=== PATIENT | female | born 1965 | race Caucasian/White ===

== ENCOUNTER 2016-07-31 20:01 | Emergency (ER) | payer MEDICARE, MEDICAID | END 2016-07-31 20:20 | disposition left against medical advice (07) | LOC: UCEAST 20:01 | DX: Z53.21 Procedure and treatment not carried out due to patient leaving prior to being seen by health care provider (principal); K08.89 Other specified disorders of teeth and supporting structures ==

== ENCOUNTER 2016-08-01 10:16 | Emergency (ER) | payer MEDICARE, MEDICAID ==
[2016-08-01 10:56] VITALS: BP 108/81
--- NOTE | 2016-08-01 11:29 | UC ---
UC Dental HPI - HPI Summary HPI Summary: L upper tooth pain for several weeks. Took course of amoxicillin rx by dentist without relief, then changed to clindamycin and had temporary relief, now most recent rx for amoxicillin is again not working. Has apt with dentist on . Last night had awful pain with gum swelling. Took 800mg ibuprofen this morning. - History of Current Complaint Chief Complaint: UCDentalProblem Stated Complaint: DENTAL COMPLAINT Time Seen by Provider: 08/01/16 11:08 Hx Obtained From: Patient Hx Last Menstrual Period: 10/30 GETS Q 2-3 MOS AT THIS TIME Onset/Duration: Gradual Onset, Lasting Weeks Severity: Moderate Aggravating: Chewing - Allergies/Home Medications Allergies/Adverse Reactions: Allergies Allergy/AdvReac Type Severity Reaction Status Date / Time Sulfa Drugs AdvReac Intermediate Joint Pain Verified 07/12/16 18:57 PMH/Surg Hx/FS Hx/Imm Hx Endocrine History Of: Reports: Thyroid Disease - hypothyroidism, synthroid Denies: Diabetes Cardiovascular History Of: Denies: Cardiac Disorders, Hypertension Respiratory History Of: Reports: COPD - 2L o2 x 24 hr, Asthma GI/ History Of: Denies: Ulcer Neurological History Of: Reports: Migraine - ONE PER MONTH Psychological History Of: Reports: Anxiety - NO MEDS, Depression - NO MEDS - Surgical History Surgical History: Yes Surgery Procedure, Year, and Place: appy 1985. C SECTIONS X2. TUBAL LIGATION - Family History Known Family History: Negative: Cardiac Disease Family History: no cardiovascular issues reported in family lineage - Social History Lives: Alone Alcohol Use: None Substance Use Type: None Substance Use Comment - Amount & Last Used: thc Smoking Status (MU): Former Smoker Type: Cigarettes Have You Smoked in the Last Year: No Review of Systems Constitutional: Negative Skin: Negative Eyes: Negative ENT: Dental Pain Respiratory: Negative Cardiovascular: Negative Gastrointestinal: Negative Genitourinary: Negative Motor: Negative Neurovascular: Negative Musculoskeletal: Negative Neurological: Negative Psychological: Negative All Other Systems Reviewed And Are Negative: Yes Physical Exam Triage Information Reviewed: Yes Appearance: Well-Appearing, No Pain Distress, Obese Vital Signs: Initial Vital Signs Temp 97.5 F 08/01/16 10:49 Pulse 89 08/01/16 10:49 Resp 18 08/01/16 10:49 BP 108/81 08/01/16 10:49 Pulse Ox 99 08/01/16 10:49 Vital Signs Reviewed: Yes Eye Exam: Normal Eyes: Positive: Conjunctiva Clear ENT Exam: Normal ENT: Positive: Normal ENT inspection, Hearing grossly normal, Pharynx normal, TMs normal Dental Exam: Other - partial plate Dental: Positive: Percussion Tenderness @ - #10. Negative: Dental Fracture @, Abscess @ Respiratory Exam: Normal Respiratory: Positive: Chest non-tender, Lungs clear, Normal breath sounds, No respiratory distress, No accessory muscle use Cardiovascular Exam: Normal Cardiovascular: Positive: RRR, No Murmur Musculoskeletal Exam: Normal Neurological Exam: Normal Psychological Exam: Normal Skin Exam: Normal Dental Complaint Course/Dx - Differential Dx/Diagnosis Provider Diagnoses: Toothache #10 Discharge - Discharge Plan Condition: Stable Disposition: HOME Prescriptions: Acetaminop/Codeine 30 MG TAB* [Tylenol/Codeine 30 MG TAB*] 1 - 2 tab PO Q6H PRN #10 tab MDD 8 PRN Reason: dental pain Clindamycin Cap(NF) [Cleocin 300 mg Cap(NF)] 300 mg PO Q6H #15 cap Indomethacin CAP* [Indocin CAP*] 50 mg PO TID PRN #30 cap PRN Reason: Pain Patient Education Materials: Toothache (ED) Referrals: Vinny Montanez DO [Primary Care Provider] - Additional Instructions: Please follow up with your dentist on Tuesday as scheduled.
== END 2016-08-01 11:10 | disposition home or self-care (01) ==
LOC: UCEAST 10:16
DX: K08.89 Other specified disorders of teeth and supporting structures (principal); Z87.891 Personal history of nicotine dependence
CPT/HCPCS: 99212; G0463

== ENCOUNTER 2016-08-10 19:45 | Emergency (ER) | payer MEDICARE, MEDICAID ==
[2016-08-10 20:04] VITALS: BP 183/77
--- NOTE | 2016-08-11 00:03 | ED ---
IMio,Masoud, scribed for Zeb Zamarripa MD on 08/10/16 at 2212 . Throat Pain/Nasal Congestion - HPI Summary HPI Summary: This 51 y/o female presents to ED for post-op dental pain after abscess drainage yesterday. [facility] OPERATOR indicates that pt has been prescribed 70 tabs of narcotic in last 24 hours. Pt states that her post-op pain has gradually worsened since the time of onset, and her prescribes hydrocodone is not helping with her pain. Per triage nurse, pt has been throwing ice pack and expletives in waiting room. - History of Current Complaint Chief Complaint: EDDentalPain Time Seen by Provider: 08/10/16 21:41 Hx Obtained From: Patient, Medical Records Onset/Duration: Gradual Onset Associated Signs And Symptoms: Positive: Negative Cough: None - Allergies/Home Medications Allergies/Adverse Reactions: Allergies Allergy/AdvReac Type Severity Reaction Status Date / Time Sulfa Drugs AdvReac Intermediate Joint Pain Verified 07/12/16 18:57 PMH/Surg Hx/FS Hx/Imm Hx Endocrine/Hematology History: Reports: Hx Thyroid Disease - hypothyroidism, synthroid Denies: Hx Bone Marrow Disease, Hx Diabetes, Hx Sickle Cell Disease, Hx Anemia Cardiovascular History: Denies: Hx Hypertension, Other Cardiovascular Problems/Disorders Respiratory History: Reports: Hx Asthma, Hx Chronic Obstructive Pulmonary Disease (COPD) - 2L o2 x 24 hr, Hx Sleep Apnea - current CPAP user, Other Respiratory Problems/Disorders - ex-smoker GI History: Reports: Hx Gastroesophageal Reflux Disease Denies: Hx Ulcer Musculoskeletal History: Denies: Other Musculoskeletal History Sensory History: Reports: Hx Contacts or Glasses Denies: Hx Hearing Aid Opthamlomology History: Reports: Hx Contacts or Glasses Neurological History: Reports: Hx Migraine - ONE PER MONTH Denies: Other Neuro Impairments/Disorders Psychiatric History: Reports: Hx Anxiety - NO MEDS, Hx Depression - NO MEDS, Other Psychiatric Issues/Disorders - previous hx recreatinal drug use - Surgical History Surgery Procedure, Year, and Place: appy 1985. C SECTIONS X2. TUBAL LIGATION Hx Anesthesia Reactions: Yes - NAUSEA AND VOMITING Infectious Disease History: No Infectious Disease History: Denies: Hx Hepatitis, Hx Human Immunodeficiency Virus (HIV), Traveled Outside the [place] in Last 30 Days - Family History Known Family History: Negative: Cardiac Disease Family History: no cardiovascular issues reported in family lineage - Social History Alcohol Use: None Hx Substance Use: No Substance Use Type: Reports: None Substance Use Comment - Amount & Last Used: thc Hx Tobacco Use: Yes Smoking Status (MU): Former Smoker Type: Cigarettes Have You Smoked in the Last Year: No Review of Systems Negative: Fever Negative: Erythema Positive: Dental Pain Negative: Chest Pain Negative: Shortness Of Breath, Cough Negative: Abdominal Pain, Nausea Negative: dysuria Negative: Myalgia, Edema Neurological: Other - positive for dizziness Negative: Weakness Negative: Anxious, Depressed All Other Systems Reviewed And Are Negative: Yes Physical Exam Vital Signs On Initial Exam: Initial Vitals Temp Pulse Resp BP Pulse Ox 97.8 F 98 22 183/77 100 08/10/16 20:00 08/10/16 20:00 08/10/16 20:00 08/10/16 20:00 08/10/16 20:00 Diagnostics - Vital Signs Vital Signs Temp Pulse Resp BP Pulse Ox 08/10/16 20:00 97.8 F 98 22 183/77 100 - Laboratory Lab Statement: Any lab studies that have been ordered have been reviewed, and results considered in the medical decision making process. EENT Course/Dx - Course Assessment/Plan: This 51 y/o female presents to ED for acute dental pain after her abscess drainage at left upper jaw. Pt is noted to be throwing her icepack as well as expletives in waiting room. Security guards are notified and present outside the room. No actively draining abscess was visible upon examination. EMR indicates that she has had 3 urgent care and ED visits for similar dental complaints. Pt is recommended to use warm tea bag, oral gel, anbasol to control her dental pain. Pt admits to taking APAP with codeine 1q6h. Pt is not noted with any SI/HI is noted, and it is not concerned that pt will be OD with APAP with codeine. Pt denies that her dentist has prescribed her abx, so abx was rx to her pharmacy. She confirms that her pharmacy is [address] . Pt became upset during the initial evaluation, and ambulated out the exam room. Discharge paper was delivered to her. - Diagnoses Provider Diagnoses: Drug-seeking behavior, Pain, dental, Postoperative pain Discharge - Discharge Plan Condition: Stable Disposition: HOME Prescriptions: Clindamycin Cap(NF) [Cleocin 300 mg Cap(NF)] 300 mg PO Q6H #28 cap Patient Education Materials: Narcotic Abuse (ED), Toothache (ED) Referrals: Miky Keller MD [Medical Doctor] - 2 Days Vinny Montanez DO [Primary Care Provider] - 2 Days Additional Instructions: Return to the emergency department for changing or worsening symptoms The documentation as recorded by the Mio warner Soohyun accurately reflects the service I personally performed and the decisions made by Marilou gilliam Jerry, MD.
== END 2016-08-10 22:04 | disposition home or self-care (01) ==
LOC: ED 19:45
DX: K08.89 Other specified disorders of teeth and supporting structures (principal); G89.18 Other acute postprocedural pain; Z72.89 Other problems related to lifestyle
CPT/HCPCS: 99283

== ENCOUNTER 2017-08-13 15:27 | Emergency (ER) | payer MEDICARE, MEDICAID ==
[2017-08-13 18:31] VITALS: BP 120/71
[2017-08-13] MEDS ORDERED: Azithromycin TAB* 250 MG PO ONE (18:51)
[2017-08-13] MEDS ORDERED: predniSONE TAB* 20 MG PO ONE (18:51)
--- NOTE | 2017-08-13 18:52 | UC ---
Respiratory Complaint HPI - HPI Summary HPI Summary: 52 yo female with COPD presents with 2 week hx of cough using neb more frequently no fever/chills - History of Current Complaint Chief Complaint: UCGeneralIllness Stated Complaint: CONGESTION Time Seen by Provider: 08/13/17 18:45 Hx Obtained From: Patient Hx Last Menstrual Period: 10/30 GETS Q 2-3 MOS AT THIS TIME Onset/Duration: Gradual Onset, Lasting Weeks - 2 Timing: Constant Severity Initially: Moderate Severity Currently: Moderate Pain Intensity: 0 Pain Scale Used: 0-10 Numeric Character: Cough: Productive Aggravating Factors: Nothing Alleviating Factors: Bronchodilator Associated Signs And Symptoms: Positive: Wheezing - Allergies/Home Medications Allergies/Adverse Reactions: Allergies Allergy/AdvReac Type Severity Reaction Status Date / Time Sulfa Drugs AdvReac Intermediate Joint Pain Verified 08/13/17 18:30 Home Medications: Home Medications Acetaminop/Codeine 30 MG TAB* [Tylenol/Codeine 30 MG TAB*] 1 tab PO Q6H PRN MDD 8 08/13/17 [History Confirmed 08/13/17] DULoxetine DR CAP* [Cymbalta CAP*] 60 mg PO BID 08/13/17 [History Confirmed ] Epinephrine [Epipen 2-Calos] 0.3 mg IM PRN 08/13/17 [History] Nortriptyline HCl 50 mg PO BEDTIME 08/13/17 [History Confirmed 08/13/17] Omalizumab (NF) [Xolair (NF)] 150 mg SUBCUT MONTHLY 08/13/17 [History Confirmed 08/13/17] PMH/Surg Hx/FS Hx/Imm Hx Previously Healthy: Yes Respiratory History: COPD, Bronchitis - Surgical History Surgical History: Yes Surgery Procedure, Year, and Place: appy 1985. C SECTIONS X2. TUBAL LIGATION - Family History Known Family History: Negative: Cardiac Disease Family History: no cardiovascular issues reported in family lineage - Social History Alcohol Use: None Substance Use Type: None Substance Use Comment - Amount & Last Used: thc Smoking Status (MU): Former Smoker Type: Cigarettes Have You Smoked in the Last Year: No Review of Systems Constitutional: Negative Skin: Negative Eyes: Negative ENT: Negative Respiratory: Cough Cardiovascular: Negative Gastrointestinal: Negative Genitourinary: Negative Motor: Negative Neurovascular: Negative Musculoskeletal: Negative Neurological: Negative Psychological: Negative Is Patient Immunocompromised?: No All Other Systems Reviewed And Are Negative: Yes Physical Exam Triage Information Reviewed: Yes Appearance: Well-Appearing, No Pain Distress, Well-Nourished Vital Signs: Initial Vital Signs Temp 97.5 F 08/13/17 18:21 Pulse 93 08/13/17 18:21 Resp 16 08/13/17 18:21 BP 120/71 08/13/17 18:21 Pulse Ox 100 08/13/17 18:21 Vital Signs Reviewed: Yes Eyes: Positive: Conjunctiva Clear ENT: Positive: Hearing grossly normal, TMs normal, Uvula midline. Negative: Nasal congestion, Nasal drainage, Tonsillar swelling, Tonsillar exudate, Trismus , Muffled voice, Hoarse voice, Sinus tenderness Neck: Positive: Supple, Nontender Respiratory: Positive: Normal breath sounds, No respiratory distress, No accessory muscle use, Wheezing - with forced expiration Cardiovascular: Positive: RRR, No Murmur Musculoskeletal: Positive: ROM Intact, No Edema Neurological: Positive: Alert Psychological Exam: Normal Skin Exam: Normal UC Diagnostic Evaluation - Laboratory O2 Sat by Pulse Oximetry: 100 - normal/not hypoxic Respiratory Course/Dx - Differential Dx/Diagnosis Provider Diagnoses: acute exacerbation of COPD Discharge - Discharge Plan Condition: Stable Disposition: HOME Prescriptions: Azithromycin TAB* [Zithromax TAB*] 250 mg PO DAILY #4 tab Prednisone [Deltasone] 40 mg PO DAILY #8 tab Patient Education Materials: Acute Bronchitis (ED) Referrals: Vinny Montanez DO [Primary Care Provider] - 4 Days
== END 2017-08-13 19:03 | disposition home or self-care (01) ==
LOC: UCCORT 15:27
DX: J44.1 Chronic obstructive pulmonary disease with (acute) exacerbation (principal); Z87.891 Personal history of nicotine dependence; Z88.2 Allergy status to sulfonamides
CPT/HCPCS: 99212; A9270-GY; G0463; J7512

== ENCOUNTER 2021-11-19 05:47 | Inpatient (IN) ==
[2021-11-19] MEDS ORDERED: Dexamethasone IV 4 MG/ML VIAL 1 ml VIAL IV SLOW PU ONE (06:00)
[2021-11-19] MEDS ORDERED: DiMENhydriNATE IV 50 mg/ml 1 ml VIAL IV PUSH ONE (06:00)
[2021-11-19] MEDS ORDERED: Lactated Ringers 1000 ml BAG 1,000 ML IV SCH (06:00)
[2021-11-19] MEDS ORDERED: Famotidine IV 10 MG/ML 2 ml VIAL (20 mg) IV ONE (06:00)
[2021-11-19] MEDS ORDERED: Buffered Lidocaine 1% SYRIN 1 ml INTRADERM ONE (06:00)
[2021-11-19] MEDS ORDERED: Levalbuterol 0.63MG/3ML NEB UNIT OF USE INH ONE ×2 (06:00→06:09)
[2021-11-19] MEDS ORDERED: DiMENhydriNATE IV 50 mg/ml 1 ml VIAL ONE (06:10)
[2021-11-19] MEDS ORDERED: ceFAZolin 2 GM PREMIX 2 GM/50 ML BAG ONE (06:10)
[2021-11-19] MEDS ORDERED: Dexamethasone IV 4 MG/ML VIAL 1 ml VIAL ONE (06:10)
[2021-11-19] MEDS ORDERED: Famotidine IV 10 MG/ML 2 ml VIAL (20 mg) ONE (06:10)
[2021-11-19] MEDS ORDERED: ROPIVACAINE 5 MG/ML 30 ML BTL (0.5%) ONE ×2 (06:58→07:12)
[2021-11-19] MEDS ORDERED: Midazolam 5 mg/5 ml VIAL 1 mg/ml 5 ml VIAL (5 mg) ONE (07:10)
[2021-11-19] MEDS ORDERED: fentaNYL 100 mcg/2 ml 50 MCG/ML VIAL ONE (07:10)
[2021-11-19] MEDS ORDERED: Ondansetron ODT 4 mg TAB 4 MG TAB PO PRN (07:35)
[2021-11-19] MEDS ORDERED: diPHENhydraMINE 25 mg TAB PO PRN (07:35)
[2021-11-19] MEDS ORDERED: diPHENhydraMINE IV 50 MG/ML 1 ml VIAL (BENADRYL) IV PRN (07:35)
[2021-11-19] MEDS ORDERED: Lactulose 30 ml UDC PO PRN (07:35)
[2021-11-19] MEDS ORDERED: Morphine 2 MG/ML SYRINGE IV PRN (07:35)
[2021-11-19] MEDS ORDERED: Magnesium Hydroxide LIQ 30 ML UDC PO PRN (07:35)
[2021-11-19] MEDS ORDERED: Ondansetron 4 mg VIAL 2 MG/ML 2 ml VIAL IV PRN (07:35)
[2021-11-19] MEDS ORDERED: Albuterol HFA INHALER 8 gm MDI INH PRN (07:46)
[2021-11-19] MEDS ORDERED: ceFAZolin 1 GM ADVAN 1 GM in NS 0.9% 50 ML 50 ML IVPB SCH (08:00)
[2021-11-19] MEDS ORDERED: Naloxone 0.4 mg VIAL 0.4 mg/ml 1 ml VIAL IV PRN (08:38)
[2021-11-19] MEDS ORDERED: Prochlorperazine 5 mg/ml 2 ml VIAL (10 mg) IV PRN (08:38)
[2021-11-19] MEDS ORDERED: Morphine 4 MG/ML VIAL (1 ml) IV PRN (08:38)
[2021-11-19] MEDS ORDERED: fentaNYL 100 mcg/2 ml 50 MCG/ML VIAL IV PRN (08:38)
[2021-11-19] MEDS: Magnesium Hydroxide LIQ 30 ML UDC PO SCH ×2 (11:51→20:45)
[2021-11-19] MEDS: Vitamin THERAPEUTIC TAB PO SCH (11:51)
[2021-11-19] MEDS: DULoxetine DR 60 mg CAP PO SCH ×2 (12:00→20:43)
[2021-11-19] MEDS: CMCS: FLUTICAS/UMECLI/VILANT 200-62.5-25 MDI (NF) INH SCH (12:01)
[2021-11-19] MEDS: Lactated Ringers 1000 ml BAG 1,000 ML IV SCH ×2 (12:03→22:51)
[2021-11-19] MEDS: ceFAZolin VIAL 1 GM in NS 0.9% 50 ML 50 ML IVPB SCH (16:12)
[2021-11-20] MEDS: ceFAZolin VIAL 1 GM in NS 0.9% 50 ML 50 ML IVPB SCH ×2 (00:07→07:49)
[2021-11-20 06:39] LABS: Hematocrit 31 % (35-47); Hemoglobin 10.4 g/dL (12.0-16.0); Mean Platelet Volume 6.5 fL (7.4-10.4); Platelet Count 196 10^3/uL (150-450)
[2021-11-20 07:00] LABS: Calcium 8.6 mg/dL (8.6-10.3); Potassium 4.7 mmol/L (3.5-5.0); eGFR CKD-EPI 99.7 (>60)
[2021-11-20] MEDS: Magnesium Hydroxide LIQ 30 ML UDC PO SCH ×2 (07:51→22:04)
[2021-11-20] MEDS: DULoxetine DR 60 mg CAP PO SCH ×2 (07:52→22:04)
[2021-11-20] MEDS: Vitamin THERAPEUTIC TAB PO SCH (07:53)
[2021-11-20] MEDS: CMCS: FLUTICAS/UMECLI/VILANT 200-62.5-25 MDI (NF) INH SCH (08:07)
[2021-11-20] MEDS ORDERED: Iohexol 350 (CONTRAST) 500 ML MDV IV ONE (12:03)
[2021-11-21] MEDS: DULoxetine DR 60 mg CAP PO SCH (07:59)
[2021-11-21] MEDS: Vitamin THERAPEUTIC TAB PO SCH (08:00)
[2021-11-21] MEDS: Magnesium Hydroxide LIQ 30 ML UDC PO SCH (08:01)
[2021-11-21 08:02] LABS: Hematocrit 28 % (35-47); Hemoglobin 9.3 g/dL (12.0-16.0); Mean Platelet Volume 6.4 fL (7.4-10.4); Platelet Count 164 10^3/uL (150-450)
[2021-11-21 11:44] VITALS: BP 119/57
== END 2021-11-21 14:10 | disposition home or self-care (01) | DRG 302 ==
LOC: AA 05:47
PROVIDERS: ADMIT Orthopaedic Surgery Adult Reconstructive Orthopaedic Surgery; ATTEND Orthopaedic Surgery Adult Reconstructive Orthopaedic Surgery

== ENCOUNTER 2024-01-31 17:28 | Observation (INO) ==
[2024-01-31] MEDS ORDERED: Magnesium Sulfate 2 gm BAG 2 GM/50 ML BAG IVPB ONE (17:49)
[2024-01-31 18:16] LABS: ABS Basophils 0.1 10^3/uL (0.0-0.1); ABS Eosinophils 0.3 10^3/uL (0.0-0.5); ABS Lymphocytes 1.9 10^3/uL (1.0-4.8); ABS Monocytes 0.5 10^3/uL (0.0-0.9); ABS Neutrophils 3.8 10^3/uL (1.5-7.6); Eosinophil % 5.2 %; Hematocrit 39.2 % (35-45); Lymphocyte % 28.6 %; Mean Corpuscular Hemoglobin 28.6 pg (27-33); Mean Corpuscular Hgb Conc 33.1 g/dL (31-36); Mean Corpuscular Volume 86.5 fL (80-97); Mean Platelet Volume 7.3 fL (7.5-11.2); Platelet Count 229 10^3/uL (150-450); Red Blood Count 4.53 10^6/uL (3.63-4.92); Red Cell Distribution Width 16.1 % (12-17); White Blood Count 6.5 10^3/uL (3.8-11.8)
[2024-01-31] MEDS: Lactated Ringers 1000 ml BAG 1,000 ML IV ONE (18:16)
[2024-01-31] MEDS: Magnesium Sulfate 2 gm BAG 2 GM/50 ML BAG IVPB ONE (18:28)
[2024-01-31 18:33] LABS: INR 1.17 (0.83-1.13)
[2024-01-31 19:20] LABS: Albumin 3.9 g/dL (3.2-5.2); Albumin/Globulin Ratio 1.6 (1-3); Calcium 8.9 mg/dL (8.6-10.3); Creatinine, Serum 0.82 mg/dL (0.51-0.95); Globulin 2.4 g/dL (2-4); Potassium 3.6 mmol/L (3.5-5.0); Total Bilirubin 0.4 mg/dL (0.2-1.0); Total Protein 6.3 g/dL (6.4-8.9); eGFR CKD-EPI 82.9 (>60)
[2024-01-31] MEDS: dilTIAZem 30 MG TAB PO ONE (19:30)
[2024-01-31 19:48] LABS: High Sensitivity Troponin 1 Hr 9 pg/mL (<15)
[2024-02-01 01:43] LABS: Magnesium 1.9 mg/dL (1.9-2.7)
[2024-02-01] MEDS: KCL 20 MEQ/100 ML IVPREMIX 20 MEQ/100 ML BAG IV ONE (02:11)
[2024-02-01] MEDS ORDERED: Albuterol HFA INHALER 8 gm MDI INH PRN (02:30)
[2024-02-01] MEDS ORDERED: Albuterol 2.5mg/3 ml (0.083%) NEB.SOLN INH PRN (02:30)
[2024-02-01 05:47] LABS: ABS Basophils 0.1 10^3/uL (0.0-0.1); ABS Eosinophils 0.4 10^3/uL (0.0-0.5); ABS Lymphocytes 1.8 10^3/uL (1.0-4.8); ABS Monocytes 0.6 10^3/uL (0.0-0.9); ABS Neutrophils 4.8 10^3/uL (1.5-7.6); ABS Nucleated RBC 0.01 10^3/ul; Eosinophil % 5.1 %; Hematocrit 38.3 % (35-45); Hemoglobin 12.5 g/dL (11.5-14.3); Mean Corpuscular Hemoglobin 28.2 pg (27-33); Mean Corpuscular Hgb Conc 32.7 g/dL (31-36); Mean Corpuscular Volume 86.4 fL (80-97); Mean Platelet Volume 7.3 fL (7.5-11.2); Nucleated Red Blood Cells % 0.1 %/100WBC (0.0-0.8); Platelet Count 225 10^3/uL (150-450); Red Blood Count 4.43 10^6/uL (3.63-4.92); Red Cell Distribution Width 16.3 % (12-17); White Blood Count 7.6 10^3/uL (3.8-11.8)
[2024-02-01 06:45] LABS: Creatinine, Serum 0.67 mg/dL (0.51-0.95); Magnesium 2.1 mg/dL (1.9-2.7); Potassium 3.9 mmol/L (3.5-5.0); eGFR CKD-EPI 101.2 (>60)
[2024-02-01 07:00] LABS: TSH Ultra Thyroid Stim Horm 4.52 mcIU/mL (0.34-5.60)
[2024-02-01] MEDS: DULoxetine DR 60 mg CAP PO SCH (07:41)
[2024-02-01] MEDS ORDERED: Acetaminop/Codeine 300mg/30mg TAB PO PRN (07:56)
[2024-02-01] MEDS: CMCS: FLUTICAS/UMECLI/VILANT 200-62.5-25 MDI (NF) INH SCH (11:27)
[2024-02-01] MEDS: Digoxin IV 0.5 MG/2 ML AMP (0.25 MG/ML) IV SLOW PU ONE (11:31)
[2024-02-01] MEDS: Metoprolol Tartrate 5 mg VIAL 5 ml VIAL (1 mg/ml) IV ONE ×2 (11:47→16:17)
[2024-02-01] MEDS: Metoprolol Tartrate 5 mg VIAL 5 ml VIAL (1 mg/ml) IV PRN (12:13)
[2024-02-01] MEDS ORDERED: Glycopyrrolate IV 0.2 MG/ML 1 ML VIAL ONE (14:44)
[2024-02-01] MEDS ORDERED: Propofol 10 MG/ML 20 ML BTL ONE (14:44)
[2024-02-01] MEDS ORDERED: Midazolam 2 mg/2 ml VIAL 1 mg/ml 2 ml VIAL (2 mg) ONE (14:44)
[2024-02-01] MEDS ORDERED: fentaNYL 100 mcg/2 ml 50 MCG/ML VIAL ONE (14:44)
[2024-02-01] MEDS: Sulfur Hexaflouride MICROSPHR 25 MG VIAL IV ONE (15:48)
[2024-02-01] MEDS ORDERED: Metoprolol Tartrate 5 mg VIAL 5 ml VIAL (1 mg/ml) ONE (16:00)
[2024-02-01 21:08] LABS: T4, Total 9.32 mcg/dL (6.09-12.23)
[2024-02-02 06:43] LABS: Calcium 8.2 mg/dL (8.6-10.3); Creatinine, Serum 0.68 mg/dL (0.51-0.95); Phosphorus 3.2 mg/dL (2.5-5.0); Potassium 4.3 mmol/L (3.5-5.0); eGFR CKD-EPI 100.9 (>60)
[2024-02-02 08:14] LABS: Hemoglobin 12.1 g/dL (11.5-14.3); Mean Corpuscular Hemoglobin 29.1 pg (27-33); Mean Corpuscular Hgb Conc 32.7 g/dL (31-36); Mean Corpuscular Volume 88.9 fL (80-97); Mean Platelet Volume 8.1 fL (7.5-11.2); Platelet Count 154 10^3/uL (150-450); Red Blood Count 4.17 10^6/uL (3.63-4.92); Red Cell Distribution Width 16.6 % (12-17); White Blood Count 6.2 10^3/uL (3.8-11.8)
[2024-02-02] MEDS: Iohexol 350 (CONTRAST) 500 ML MDV IV ONE ×2 (08:59→17:26)
[2024-02-02 14:14] VITALS: BP 103/63
== END 2024-02-02 17:44 | disposition home or self-care (01) ==
LOC: EDHOLD 17:28 → ED 17:28 → SUATTDRO 23:55 → MEDTELE 02-01 16:57
PROVIDERS: ADMIT Internal Medicine; ATTEND Hospitalist